=== PATIENT | female | born 1995 | race Two or more races ===

== ENCOUNTER → 2024-10-11 | Outpatient (REF) | payer OTHER ==
[~2024-10-11] MED LIST: PRENTAB9 PO
== END ==
LOC: M SFHCWAGY 15:09
PROVIDERS: ATTEND Nurse Practitioner Family
DX: Z36.89 Encounter for other specified antenatal screening (principal); Z3A.36 36 weeks gestation of pregnancy

== ENCOUNTER 2024-10-20 20:42 | Outpatient (CLI) | payer OTHER ==
[~2024-10-20] VITALS: Ht 152.4 cm; Wt 70.7 kg
[2024-10-20 20:57] VITALS: BP 122/80
[2024-10-20] MEDS ORDERED: TUMS750C5 PO (21:10)
[2024-10-20] MEDS ORDERED: HOME MED LIST COMPLETE! XX SCH (21:15)
== END 2024-10-20 22:05 | disposition home or self-care (01) ==
LOC: M LDO 20:42
PROVIDERS: ATTEND Obstetrics & Gynecology
DX: O36.8130 Decreased fetal movements, third trimester, not applicable or unspecified (principal); Z3A.37 37 weeks gestation of pregnancy
CPT/HCPCS: 59025; G0463

== ENCOUNTER → 2024-10-31 | Outpatient (REF) | payer OTHER ==
[~2024-10-31] MED LIST changes: +TUMS750C5 PO
== END ==
LOC: M PLALAB 10:54
PROVIDERS: ATTEND Student in an Organized Health Care Education/Training Program
DX: N89.8 Other specified noninflammatory disorders of vagina (principal)

== ENCOUNTER 2024-11-07 15:25 | Inpatient (IN) | payer OTHER ==
[2024-11-07] VITALS (9 sets, daily range): BP systolic 112–143; BP diastolic 73–94
[~2024-11-07] VITALS: Ht 152.4 cm; Wt 70.4 kg
[2024-11-07] MEDS ORDERED: HOME MED LIST COMPLETE! XX SCH (15:35)
[2024-11-07 17:24] LABS: TOTAL PROTEIN,RANDOM URINE 35.0 MG/DL (0.0-14.0)
[2024-11-07 17:45] LABS: PLATELET COUNT, AUTOMATED 249 10^3/uL (150-450)
[2024-11-07 18:18] LABS: LDH LACTATE DEHYDROGENASE 201 U/L (120-246)
[2024-11-07 18:19] LABS: ALT/SGPT 13 U/L (7.0-40); AST/SGOT 21 U/L (<34); CREATININE FOR GFR 0.64 MG/DL (0.55-1.30); GLOMERULAR FILTRATION RATE > 90.0 (>60)
[2024-11-07] MEDS ORDERED: OXYTOCIN DRIP 30 UNITS in IV 1 EA IV PRN (18:30)
[2024-11-07] MEDS ORDERED: TRANEXAMIC ACID INJection 1,000 MG in NS 100 ML IV PRN (18:30)
[2024-11-07] MEDS ORDERED: OXYTOCIN DRIP 30 UNITS in IV 1 EA IV SCH (18:30)
[2024-11-07] MEDS ORDERED: LIDOCAINE 1% MDV 20 ML VIAL INFIL PRN (18:30)
[2024-11-07] MEDS ORDERED: OXYTOCIN INJ 10UNITS/ML 1ML VIAL IM PRN (18:30)
[2024-11-07] MEDS ORDERED: CARBOPROST TROMETHAMINE 250 MCG/ML AMP IM PRN (18:30)
[2024-11-07] MEDS: LR 1,000 ML IV SCH (18:30)
[2024-11-07 18:47] LABS: HIV 1&2 SCREEN NEGATIVE (NEGATIVE)
[2024-11-07 18:55] LABS: HEPATITIS C VIRUS ABY INDEX < 0.02 INDEX (<0.8)
[2024-11-07] MEDS: BUTORPHANOL 2 MG/ML 1 ML VIAL IV ONE (22:35)
[2024-11-08] VITALS (32 sets, daily range): BP systolic 106–142; BP diastolic 55–89; TEMP 98.1; O2SAT 95–100
[2024-11-08] MEDS ORDERED: FENTANYL 2 MCG/ML ROPIVACAINE 0.2% IN 0.9% NACL 100 ML IVBAG As Ordered ONE (07:17)
[2024-11-08] MEDS ORDERED: diphenhydrAMINE 50 MG/ML VIAL IV PRN ×2 (07:20→09:45)
[2024-11-08] MEDS ORDERED: ONDANSETRON 4MG 2ML VIAL IV PRN ×2 (07:20→09:45)
[2024-11-08] MEDS ORDERED: EPIDURAL/PCA KEYS XX PRN (07:20)
[2024-11-08] MEDS ORDERED: NALOXONE INJ 0.4 MG/1 ML VIAL IV PRN ×3 (07:20→09:45)
[2024-11-08] MEDS ORDERED: LR 500 ML IV PRN (07:20)
[2024-11-08] MEDS: FENTANYL/ROPIVACAINE/NACL BAG 100 ML EPIDURAL SCH (07:26)
[2024-11-08] MEDS ORDERED: LIDOCAINE PRES-FREE 2% 10 ML AMP As Ordered ONE (08:34)
[2024-11-08] MEDS ORDERED: OXYTOCIN INJ 10UNITS/ML 1ML VIAL As Ordered ONE (08:37)
[2024-11-08] MEDS ORDERED: dexAMETHasone 4 MG/ML 1 ML VIAL As Ordered ONE (08:39)
[2024-11-08] MEDS ORDERED: KETOROLAC 30 MG/ML 1 ML VIAL As Ordered ONE (08:39)
[2024-11-08] MEDS ORDERED: ONDANSETRON 4MG 2ML VIAL As Ordered ONE (08:39)
[2024-11-08] MEDS: ceFAZolin SODIUM 2 GM in DEXTROSE 5% (D5W) ADV/MINI-BAG 50 ML IV ONE (08:40)
[2024-11-08] MEDS: AZITHROMYCIN INJ 500 MG, VIAL MATE ADAPTER 1 EACH in NS 250 ML IV ONE (08:40)
[2024-11-08] MEDS ORDERED: BICITRA 30 ML SOLN UDC As Ordered ONE (08:42)
[2024-11-08] MEDS: BICITRA 30 ML SOLN UDC PO ONE (08:45)
[2024-11-08] MEDS ORDERED: MORPHINE PRES-FREE INJ 10 MG/10 ML VIAL As Ordered ONE (09:05)
[2024-11-08 09:18] LABS: CORD GAS ABE A -8.0; CORD GAS ABE V -6.3; CORD GAS HCO3 A 21.9 MMOL/L; CORD GAS HCO3 V 22.9 MMOL/L; CORD GAS O2 SAT A 36.2 %; CORD GAS O2 SAT V 34.9 %; CORD GAS PCO2 A 65.1 mmHg; CORD GAS PCO2 V 62.1 mmHg; CORD GAS PH A 7.144 UNITS; CORD GAS PH V 7.184 UNITS; CORD GAS PO2 A 21.9 mmHg; CORD GAS PO2 V 21.4 mmHg; CORD GAS SBC A 16.8 MMOL/L; CORD GAS SBC V 18.1 MMOL/L; CORD GAS TCO2 A 23.9 MMOL/L; CORD GAS TCO2 V 24.8 MMOL/L
[2024-11-08] MEDS ORDERED: HYDROMORPHONE HCL 0.5 MG/0.5 ML SYRINGE IV PRN (09:45)
[2024-11-08] MEDS: traMADol 50 MG TAB PO ONE (09:45)
[2024-11-08] MEDS ORDERED: NALBUPHINE HCL 10 MG/ML 1 ML AMP IV PRN (09:45)
[2024-11-08] MEDS ORDERED: SIMETHICONE 80MG CHEW TAB PO PRN (09:45)
[2024-11-08] MEDS ORDERED: RHOGAM 300MCG (1500IU) INJ IM SCH (09:45)
[2024-11-08] MEDS ORDERED: **NOTE PATIENT COMMENT** MISC XX SCH (09:45)
[2024-11-08] MEDS ORDERED: CALCIUM CARBONATE 500 MG CHEW U/D PO PRN (09:45)
[2024-11-08] MEDS ORDERED: ANUSOL HC CREAM 30 GM TOP PRN (09:45)
[2024-11-08] MEDS: SLF 3 ML SYR IV SCH (09:45)
[2024-11-08] MEDS ORDERED: MOM 30 ML SUSPENSION UDC PO PRN (09:45)
[2024-11-08] MEDS ORDERED: ACETAMINOPHEN 500 MG TAB PO PRN (09:45)
[2024-11-08] MEDS: KETOROLAC 30 MG/ML 1 ML VIAL IV SCH (16:10)
[2024-11-08] MEDS: DOCUSATE SODIUM 100 MG CAPSULE PO SCH (22:04)
[2024-11-09 05:00] VITALS: BP 113/59; O2SAT 96
[2024-11-09] MEDS: PRENATAL VITAMINS CHEWABLE TABLET PO SCH (09:16)
[2024-11-09] MEDS: FERROUS SULFATE 325 MG TAB PO SCH (09:16)
[2024-11-09 09:26] LABS: PLATELET COUNT, AUTOMATED 187 10^3/uL (150-450)
[2024-11-09 12:00] VITALS: BP 115/58; O2SAT 96
[2024-11-09] MEDS: IBUPROFEN 800 MG TAB PO SCH (12:22)
[2024-11-09 14:00] VITALS: BP 112/59; O2SAT 96
[2024-11-09 18:00] VITALS: BP 122/63; O2SAT 97
[2024-11-09 22:00] VITALS: BP 117/73; O2SAT 96
[2024-11-10 01:49] VITALS: BP 105/71; O2SAT 97
[2024-11-10 05:59] VITALS: BP 128/66; O2SAT 97
[2024-11-10] MEDS: MEASLES,MUMPS,RUBELLA VACCINE INJ (MMR-II) SC.IMMUN ONE (07:40)
[2024-11-10] MEDS: FLUZONE VACCINE TRI PF(25-26) 0.5ML SYRINGE IM.IMMUN ONE (09:32)
[2024-11-10] MEDS ORDERED: OXYC-517 PO (11:27)
[2024-11-10] MEDS ORDERED: COLA100C5 PO (11:27)
[2024-11-10] MEDS ORDERED: IBUP80TA PO (11:27)
== END 2024-11-10 13:30 | disposition home or self-care (01) | DRG 773 ==
LOC: M LDO 15:25 → M LDI 18:23 → M OBS 11-08 11:25
PROVIDERS: ADMIT Advanced Practice Midwife; ATTEND Obstetrics & Gynecology
PROC: 3E033VJ Introduction of Other Hormone into Peripheral Vein, Percutaneous Approach (ICD-10-PCS; 2024-11-07)
PROC: 10D00Z1 Extraction of Products of Conception, Low, Open Approach (ICD-10-PCS; principal; 2024-11-08 08:41)
DX: O14.14 Severe pre-eclampsia complicating childbirth (principal); Z3A.39 39 weeks gestation of pregnancy; O76 Abnormality in fetal heart rate and rhythm complicating labor and delivery; Z37.0 Single live birth